=== PATIENT | female | born 1955 | race Caucasian/White ===

== ENCOUNTER 2018-06-09 14:56 | Inpatient (IN) | payer OTHER ==
[2018-06-09 15:55] VITALS: BMI 30.8
[2018-06-09] MEDS ORDERED: ASPIRIN EC 81 MG TAB PO ONE (16:19)
[2018-06-09 16:45] LABS: Protime INR 1.03
[2018-06-09] MEDS: CARVEDILOL 12.5 MG TAB PO SCH (16:59)
[2018-06-09] MEDS ORDERED: PNEUMOCOCCAL VACCINE 0.5 ML IMVAC ONE (17:00)
[2018-06-09] MEDS: ENOXAPARIN 60 MG/0.6 ML SQ SCH ×2 (17:00→21:00)
[2018-06-09 17:11] LABS: ALT/SGPT 31 U/L (12-78); AST/SGOT 20 U/L (15-37); Albumin 3.8 g/dL (3.4-5.0); Alkaline Phosphatase 82 U/L (45-117); BUN Blood Urea Nitrogen 18 mg/dL (7-18); Bicarbonate 31 mmol/L (21-32); Bilirubin Total 0.6 mg/dL (0.2-1.0); CKMB Creatine Kinase MB < 1.0 ng/mL (0.3-3.6); Creatine Phosphokinase 76 U/L (26-192); Glucose Level 88 mg/dL (74-106); Magnesium 2.5 mg/dL (1.8-2.4); Potassium 3.6 mmol/L (3.5-5.1); Protein, Total 8.4 g/dL (6.4-8.2); Sodium Level 140 mmol/L (136-145); Thyroid Stimulating Hormone 0.812 uIU/mL (0.360-3.740); Troponin I < 0.02 ng/mL (0.0-0.045)
--- NOTE | 2018-06-09 18:21 | RAD REPORT ---
EXAM DESCRIPTION: Devin Singletary (2 Views)06/09/2018 5:56 pm CLINICAL HISTORY: Cough COMPARISON: 2012 FINDINGS: The lungs appear clear of acute infiltrate. The heart is normal size IMPRESSION: No acute abnormalities displayed
[2018-06-09] MEDS ORDERED: POTASSIUM CL SA 10 MEQ TAB PO ONE (21:00)
--- NOTE | 2018-06-10 02:50 | HP ---
Date of Admission: 06/09/2018 Chief Complaint: High blood pressure, chest pain, shortness of breath. 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 The patient santos s a history of hypertension, takes her medications regularly, but today while she was at school, sitt ing down eating lunch with other teachers, all of a sudden she started to have chest tightness associ ated with shortness of breath and she was sweating profusely. Blood pressure checked at school was 1 42/111 and this was around 12:15 p.m. The patient was brought into office and when I evaluated her b lood pressure, it was normal. She was asymptomatic, but she describes feeling funny in her chest. U jim further questioning, the patient reports having this similar complaints of having chest tightness associated with shortness of breath and sweating with normal day-to-day activity and this is going o n in last 2-3 weeks. She denies any fever, chills, cough, expectoration. No fall. No injury. Afte r I have evaluated her, decision was made to admit her to hospital as I am concerned about possibilit y of unstable angina. Review of Systems: Cardiovascular: As mentioned above. All other systems reviewed and negative. Past Medical History: Mild intermittent asthma, depression, hypertension, hyperlipidemia, fibromyalg ia, gastroesophageal reflux disease, osteoporosis, impaired fasting glucose, breast cancer, vitamin D deficiency. Past Surgical History: Partial left mastectomy in 2009 due to breast cancer and then in 2010, she santos d bilateral mastectomy due to left breast cancer. She had cholecystectomy in 2009. Allergies: TO PENICILLIN AND CODEINE. Family History: Significant for hypertension, diabetes, hyperlipidemia, stroke, heart disease, lung cancer. Social History: Negative for smoking or alcohol use. Medications: Advair 250/50 one puff 2 times a day, alprazolam 0.25 mg p.o. b.i.d. p.r.n. anxiety, Am devon 10 mg p.o. at bedtime for sleep, amlodipine 5 mg p.o. daily, Boniva 150 mg p.o. once a month, Ca ltrate plus D 1 tablet 2 times a day, carvedilol 12.5 mg 2 times a day, duloxetine 60 mg p.o. daily, famotidine 40 mg p.o. at bedtime, folic acid 1 mg p.o. daily, tramadol 50 mg 4 times a day as needed. Physical Examination: Vital Signs: When she came into office today, height 5 feet 1 inch, weight 163 pounds, blood pressur e 122/82, respiratory rate 15, temperature 98.3, pulse 106, regular. General: Awake, alert, oriented, not in distress. HEENT: Head atraumatic, normocephalic. Conjunctivae nonerythematous. Sclerae white. Mouth, no thr ush or edema noted. Ears/Nose, no mass, lesion, discharge noted. Neck: Supple. No JVD, lymph nodes, bruit, thyromegaly noted. Lungs: Bilateral good equal air entry. Clear to auscultation. No rhonchi. No rales. Heart: Normal heart sounds, no murmur or gallop. Abdomen: Soft, bowel sounds normal. No guarding, rigidity, tenderness, mass, hepatosplenomegaly, dis tention, or bruit noted. Extremities: No leg edema. No calf tenderness. Skin: No rash, ulcer, cellulitis. Lymphatics: No lymph node enlargement in neck, supraclavicular, infraclavicular region. Neuro: No focal neurological deficit. Chest: Unremarkable. External Genitalia: Deferred. Rectal: Deferred. Laboratory Data: Chest x-ray, no acute cardiopulmonary changes. Sodium 140, potassium 3.6, chloride 105, bicarb 31, BUN 18, creatinine 0.98, glucose 88. Liver function tests unremarkable. Troponin l ess than 0.02. TSH 0.812. CBC pending. PT/PTT normal. Impression: 1.Unstable angina. 2.Hypertension. 3.Hyperlipidemia. 4.Breast cancer. 5.Gastroesophageal reflux disease. 6.Osteoporosis. 7.Anxiety. 8.Depression. Plan: Admit the patient to hospital for further evaluation and management of this problem. The sahara ent is appropriate for inpatient and is expected to spend 2 midnights in hospital. Another EKG was o rdered. We will follow up on that along with CBC result, which is pending. We will get another set of cardiac enzymes tonight. Echocardiogram was ordered and we will get a stress test done tomorrow. Cardiology consultation was requested. The patient was started on aspirin and Lovenox per order. H ome medications will be continued per order. I will see her tomorrow morning for followup. Details and plan of treatment discussed with the patient. JESSEE/TOBIAS Voice ID: [id number]
[2018-06-10] MEDS: CARVEDILOL 12.5 MG TAB PO SCH (05:11)
[2018-06-10] MEDS ORDERED: REGADENOSON 0.4 MG/5 ML SYR IV ONE (07:56)
[2018-06-10] MEDS ORDERED: AMLODIPINE 5 MG TAB PO SCH (09:00)
[2018-06-10] MEDS ORDERED: ASPIRIN EC 81 MG TAB PO SCH (09:00)
[2018-06-10 09:19] VITALS: TEMP 97.2
--- NOTE | 2018-06-10 09:58 | RAD REPORT ---
EXAM DESCRIPTION: NM - Rest Stress Cardiac Imaging - 06/10/2018 9:52 am CLINICAL HISTORY: CP Chest pain. COMPARISON: No comparisons TECHNIQUE: The patient was administered approximately 10mCi of Tc 99m Sestamibi prior to resting SPE CT imaging of the heart. The patient was then administered approximately 30 mCi of Tc 99m Sestamibi f ollowing exercise or pharmacologic stress. Multiplanar SPECT images were reviewed. FINDINGS: No stress induced ischemic defect is seen to suggest stress induced ischemia. No fixed def ect is seen to suggest hibernating myocardium or scarred myocardium. The end diastolic volume is 85 ml, the end systolic volume is 38 ml, and the ejection fraction is 55 %. IMPRESSION: No stress induced ischemia.
[2018-06-10] MEDS: ENOXAPARIN 60 MG/0.6 ML SQ SCH (10:12)
--- NOTE | 2018-06-10 12:35 | RAD REPORT ---
EXAM DESCRIPTION: CT - Chest For Pe Angio - 06/10/2018 12:26 pm CLINICAL HISTORY: Chest pain, shortness of breath COMPARISON: Chest films same date, CT chest 2011 TECHNIQUE: Dynamically enhanced 3 mm thick images of the chest were obtained during administration o f approximately 150mL Isovue 370 IV contrast. Coronal and oblique MIP reconstruction images were gene rated and reviewed. Exam utilizes a protocol to evaluate the pulmonary arterial tree. All CT scans are performed using dose optimization technique as appropriate and may include automated exposure control or mA/KV adjustment according to patient size. FINDINGS: No pulmonary emboli are identified. The aorta as imaged shows no acute or suspicious finding. No pericardial thickening or effusion. No infiltrate or mass in the lung parenchyma. No pleural effusion or pleural thickening. Interstitial markings are prominent and probably are baseline for the patient. A minimal component of interstitia l edema or infiltrate would still be possible. No mediastinal or hilar suspicious masses. No chest wall masses or abnormal axillary lymphadenopathy. Left mastectomy surgical changes noted. IMPRESSION: No pulmonary emboli identified. No focal infiltrate or mass. Mild prominence of the interstitium is probably baseline mild fibrosis. A minimal component of interstitial edema or infiltrate would be possible.
--- NOTE | 2018-06-10 14:03 | EKG ---
Test Date: 2018-06-09 Test Time: 16:24:34 Nuclear Reactor Engineer: CASANDRA MEASUREMENT RESULTS: Intervals: Rate: 74 MA: 146 QRSD: 90 QT: 420 QTc: 466 [place]: P: 45 MA: 146 QRS: -13 T: 31 INTERPRETIVE STATEMENTS: Normal sinus rhythm Minimal voltage criteria for LVH, may be normal variant Borderline ECG Compared to ECG 11/22/2013 10:47:56 Left ventricular hypertrophy now present Sinus bradycardia no longer present T-wave abnormality no longer present Possible ischemia no longer present Prolonged QT interval no longer present Electronically Signed On 06-10-18 13:59:03 YARDER OPERATOR by Junior Gibbons
[2018-06-10] MEDS ORDERED: TRAMADOL HCL 50 MG TAB PO ONE (15:04)
[2018-06-10] MEDS ORDERED: ACETAMINOPHEN 500 MG TAB PO ONE (15:04)
--- NOTE | 2018-06-10 16:08 | TREADPHA ---
DX: CHEST PAIN Date of Study: 06/10/18 Ht: 5 1 Wt: 163 lb 0 oz Consulting Physician: JOANNE MEDICATIONS: NORVASC, ASPIRIN, COREG, LOVENOX. HISTORY: 63 YEAR FEMALE, COMPLAINTS OF CHEST PAIN, HISTORY: HYPERTENSION, FIBROMYALGIA, NEUROPATHY, DOUBLE MASTECTOMY. PHYSICIAL EXAMINATION: RESTING B.P.: 142/69 RESTING H.R.: 67 RESTING EKG: NORMAL PROTOCOL: LEXISCAN EXERCISE TIME: 3:30 B.P. AT PEAK STRESS: 114/63 IMPRESSION: LEXISCAN INJECTED, FOLLOWED BY CARDIOLITE PER PROTOCOL, SEE NUCLEAR MEDICINE REPORT. NO SUPRAVENTRICULAR TACHYCARDIA. NO VENTRICULAR TACHYCARDIA. NO PREMATURE ATRIAL COMPLEXS. NO PREMATURE VENTRICULAR COMPLEXS. PATIENT REPORTED 8/10 CHEST TIGHTNESS PRIOR TO STRESS TEST. PATIENT REPORTED DECREASE IN CHEST TIGHTNESS THROUGHOUT AND IN RECOVERY. PATIENT REPORTED NO CHEST PAIN.
[2018-06-10 17:07] VITALS: BP 143/88
--- NOTE | 2018-06-11 00:02 | CON ---
Date of Consultation: 06/10/2018 Reason For Consultation: Chest pain. History Of Present Illness: Ms. iKm is a 63-year-old white woman, has a history of hypertension, fibromyalgia, dyslipidemia, gastroesophageal reflux disease, depression, and history of breast cance r in the past. She came in with sharp stabbing chest pain over the left chest that is persistent for hours without any nausea, vomiting, diaphoresis, PND, orthopnea, pedal edema, palpitations, or synco pe. Ms. Kim had a normal heart catheterization in 2011. Past Medical History: As stated above. Allergies: INCLUDE PENICILLIN AND CODEINE. Review of Systems: Negative. Social History: Negative. Family History: Negative. Medications: At home include carvedilol and Norvasc. Physical Examination: GENERAL: She appeared to be a little bit anxious, but otherwise in no acute distress. VITAL SIGNS: Stable. She was afebrile. She was in a sinus rhythm. HEENT: Negative. NECK: Supple without any bruit, lymphadenopathy, JVD, or thyromegaly. CHEST: Clear to auscultation and percussion. CARDIAC: Revealed a regular rhythm and rate without any murmurs, gallops, or rubs. ABDOMEN: Benign. EXTREMITIES: Revealed no clubbing, cyanosis, or edema. Diagnostic Data: Within normal limits. Impression And Plan: Atypical chest pain in a patient with hypertension and dyslipidemia. She had a negative heart catheterization in 2011. There is an echocardiogram and a Lexiscan that are pending and we will see what those show prior to making any final decisions. Her other issues include hypert ension and dyslipidemia that are stable. She has fibromyalgia. Her symptoms are different with her fibromyalgia. She would usually describe a muscle pulling kind of sensation. She has a history of d epression and has a history of breast cancer that is cured as far as we know. VERONICA/TOBIAS Voice ID: [id number] Report ID: [id number]
--- NOTE | 2018-06-12 06:22 | DS ---
Date of Discharge: 06/10/2018 Disposition: Discharged to go home. Physical Examination: HEENT: Unremarkable. LUNGS: Clear to auscultation. HEART: Sounds normal. ABDOMEN: Soft. Bowel sounds normal. No guarding, rigidity, tenderness, or distention. EXTREMITIES: No leg edema. Discharge Medications And Instructions: Continue prior home medication except change amlodipine 5 mg. The patient to take 1 tablet by mouth 2 times a day, take antibiotic cephalexin 500 mg 1 capsule by mouth 3 times a day with food for 1 week. Follow up at my office in 1 week. Hospital Course: A 63-year-old female patient admitted to hospital with chest pain complaint. Please see dictated H and P for more information. The patient' s blood pressure was high while she was at school and had chest pain describing as tightness, some shortness of breath and sweating associated with that. She came into office after she was evaluated. She was admitted to hospital. See dictated H and P for more details. I was concerned about possibility of unstable angina when I first saw her and admitted her to hospital. Initial workup included routine EKG, chest x-ray, and blood work including troponin, which came back unremarkable and Lexiscan was done which was negative for stress -induced ischemia. After stress test came back negative, we ordered CT scan of the chest per PE protocol which was negative for pulmonary embolism or any other acute findings. Cardiology consultation was requested. The patient was asymptomatic and was discharged to go home and was advised to increase the dose of her amlodipine from 5 mg once a day to 2 times a day, and I will see her at office in 1 week. She was given pneumonia vaccine during this hospital stay and this morning when I saw her, she was having some pain in and around injection site in right arm and there was no sign of any redness or swelling when I saw her. Later on, nurse contacted and informed me that her arm is red and warm to touch and tender around injection site and thus, will start her on antibiotic for one week for cellulitis of right arm. Final Diagnoses: 1. Chest pain. 2. Hypertension. 3. Breast cancer, left. 4. Hyperlipidemia. 5. Mild intermittent asthma. 6. Cellulitis, right arm. 7. Gastroesophageal reflux disease. 8. Anxiety. 9. Depresssion. JESSEE/MODL Voice ID: [id number] Report ID: [id number] MTDD
--- NOTE | 2018-06-13 07:53 | ECHO ---
HEIGHT: 5 ft 1 in WEIGHT: 163 lb 0 oz DATE OF STUDY: 06/10/[address]: Kody Rock MD 2-DIMENSIONAL: YES M.MODE: YES DOPPLER: YES COLOR FLOW: YES TDS: NO PORTABLE: NO DEFINITY: NO BUBBLE STUDY: NO DIAGNOSIS: CONGESTIVE HEART FAILURE CARDIAC HISTORY: CATHERIZATION: NO SURGERY: NO PROSTHETIC VALVE: NO PACEMAKER: NO MEASUREMENTS (cm) DIASTOLIC (NORMALS) SYSTOLIC (NORMALS) IVSd 0.9 (0.6-1.2) LA Diam 2.5 (1.9-4.0) LVEF 59% LVIDd 3.8 (3.5-5.7) LVIDs 2.6 (2.0-3.5) %FS 30% LVPWd 1.0 (0.6-1.2) Ao Diam 2.9 (2.0-3.7) 2 DIMENSIONAL ASSESSMENT: RIGHT ATRIUM: NORMAL LEFT ATRIUM: NORMAL RIGHT VENTRICLE: NORMAL LEFT VENTRICLE: NORMAL TRICUSPID VALVE: NORMAL MITRAL VALVE: NORMAL PULMONIC VALVE: NORMAL AORTIC VALVE: NORMAL PERICARDIAL EFFUSION: NONE AORTIC ROOT: NORMAL LEFT VENTRICULAR WALL MOTION: NORMAL DOPPLER/COLOR FLOW: NORMAL COMMENTS: NORMAL 2D ECHOCARDIOGRAM WITH DOPPLER. NO WALL MOTION ABNORMALITY. NO EFFUSION. TECHNOLOGIST: Luis JOHNS
== END 2018-06-10 17:44 | disposition home or self-care (01) | DRG 313 ==
LOC: 4TH 14:59
PROVIDERS: ADMIT Internal Medicine; ATTEND Internal Medicine
DX: R07.9 Chest pain, unspecified (principal); L03.113 Cellulitis of right upper limb; I10 Essential (primary) hypertension; E78.5 Hyperlipidemia, unspecified; K21.9 Gastro-esophageal reflux disease without esophagitis; M81.0 Age-related osteoporosis without current pathological fracture; F41.9 Anxiety disorder, unspecified; F32.9 Major depressive disorder, single episode, unspecified; C50.919 Malignant neoplasm of unspecified site of unspecified female breast; M79.7 Fibromyalgia; Z85.3 Personal history of malignant neoplasm of breast; Z88.5 Allergy status to narcotic agent; Z88.0 Allergy status to penicillin; Z23 Encounter for immunization; J45.20 Mild intermittent asthma, uncomplicated
CPT/HCPCS: 36415; 71046; 71275; 78452; 80053; 80061; 82550; 82553; 83735; 84443; 84484; 85025; 85610; 85730; 90670; 93005; 93017; 93306; A9500; G0009; G0378; J1650; J2785; Q9967

== ENCOUNTER 2022-10-18 19:26 | Emergency (ER) | payer OTHER ==
--- OUTSIDE RECORDS SUMMARY | 2022-10-18 19:30 | XMS REPORT | Continuity of Care Document ---
:1955 Author Organization [facility] t Address [address] [facility] [address] [place] [id number] Care Team Providers Name Role Phone Kirill Rock Primary Care Physician GC_SWHAWPRJeanine_Rambo_H Attending Clinician Unavailable ANGEL HADDAD Attending Clinician Unavailable ANGEL LUIS BRIONES Attending Clinician Unavailable [email or web address]_Rambo_Sharmin Admitting Clinician Unavailable Payers Payer Name Policy Type Policy Number Effective Date Expiration Date S [facility] [id number] (MEDICARE REPLACEMENT/ADVANTAGE - PPO) Problems This patient has no known problems. Allergies, Adverse Reactions, Alerts Allergy Allergy Status Severity Reaction(s) Onset Inactive Treating Comm ents Source Name Type Date Date Clinician Penicill Propensi Active [facility] ins ty to 01-17 st adverse 00:00: Hospita reaction 00 l s to drug PENICILL Allergy Active [facility] INS to Medical substanc e Family History Family Member Diagnosis Comments Start Date Stop Date Source Natural brother Colon polyps [facility] Natural sister Colon [facility]ps [facility] Social History Social Habit Start Date Stop Date Quantity Comments Source Gender identity [facility] Alcohol intake 2020-02-22 2020-02-22 Lifetime [facility] 00:00:00 00:00:00 non-drinker Hospital (finding) History of Social 2020-02-22 2020-02-[address] function 00:00:00 00:00:00 Hospital Tobacco use and 2019-01-17 2019-01-17 Smokeless [facility] exposure 00:00:00 00:00:00 tobacco non-user Hospital Sex Assigned At [birth year] [facility] Smoking Status Start Date Stop Date Source Never smoked tobacco [facility] Medications Ordered Filled Start Stop Current Ordering Indication Dosage Frequency Signature Comments Components Source Medication Medication Date Date Medication? Clinician (SIG) Name Name pantoprazol 2019-05 Yes 40mg QD Take 40 mg [facility] 0-[address] (PROTONIX) 09:59: daily. Hospi ta 40 MG EC 17 l tablet tofacitinib 2019-05 Yes 5mg Q.5D Take 5 mg M [facility] (Xeljanz) 5 0-[address] mg tablet 09:57: (two) Hospita 35 times a l day. zolpidem Yes TK 1 T PO Meth abrahan (AMBIEN) 10 8-[address] mg tablet 00:00: Hospita 00 l traMADol 2018-0 Yes TK 1 T PO Meth abrahan (ULTRAM) 50 8-[address] mg tablet 00:00: Hospita 00 l DULoxetine Yes TK 1 C PO [facility] (CYMBALTA) 7-[address] 60 MG 00:00: Hospita capsule 00 l amLODIPine Yes TK 1 T PO [facility] (NORVASC) 5 7-[address] mg tablet 00:00: Hospita 00 l celecoxib Yes TK 1 C PO Met hodi (CeleBREX) 7-[address] 200 MG 00:00: Hospita capsule 00 l folic acid 2018- Yes TK 1 T PO [facility] (FOLVITE) 1 7-[address] MG tablet 00:00: Hospita 00 l methotrexat Yes INJECT 1 [facility] e PF 25 6-[address] mg/mL chemo 00:00: WEEKLY. Hos linda syringe 00 l albuterol albuterol No albuterol [facility] sulfate HFA sulfate HFA sulfate Medical 90 90 HFA 90 mcg/actuati mcg/actuati mcg/actuat on aerosol on aerosol ion inhaler inhaler aerosol INHALE 2 INHALE 2 inhaler PUFFS BY PUFFS BY INHALE 2 MOUTH EVERY MOUTH EVERY PUFFS BY 6 HOURS 6 HOURS MOUTH NEEDED FOR NEEDED FOR EVERY 6 SHORTNESS SHORTNESS HOURS OF BREATH OF BREATH NEEDED FOR SHORTNESS OF BREATH amlodipine amlodipine No amlodipine [facility] 5 mg tablet 5 mg tablet 5 mg M edical TAKE 1 TAKE 1 tablet TABLET BY TABLET BY TAKE 1 MOUTH TWICE MOUTH TWICE TABLET BY DAILY DAILY MOUTH TWICE DAILY atorvastati atorvastati No atorvastat [facility] n 20 mg n 20 mg in 20 mg Medic al tablet TAKE tablet TAKE tablet 1 TABLET BY 1 TABLET BY TAKE 1 MOUTH DAILY MOUTH DAILY TABLET BY AT BEDTIME AT BEDTIME MOUTH DAILY AT BEDTIME azithromyci azithromyci No azithromyc [facility] n 250 mg n 250 mg in 250 mg Me dical tablet tablet tablet cefuroxime cefuroxime No cefuroxime [facility] axetil 250 axetil 250 axetil 250 Medical mg tablet mg tablet mg tablet TAKE 1 TAKE 1 TAKE 1 TABLET BY TABLET BY TABLET BY MOUTH TWICE MOUTH TWICE MOUTH DAILY DAILY TWICE DAILY celecoxib celecoxib No celecoxib [facility] 200 mg 200 mg 200 mg Medical capsule capsule capsule TAKE 1 TAKE 1 TAKE 1 CAPSULE BY CAPSULE BY CAPSULE BY MOUTH TWICE MOUTH TWICE MOUTH DAILY WITH DAILY WITH TWICE FOOD FOOD DAILY WITH FOOD duloxetine duloxetine No duloxetine [facility] 60 mg 60 mg 60 mg Medical capsule,del capsule,del capsule,de ayed ayed layed release release release TAKE 1 TAKE 1 TAKE 1 CAPSULE BY CAPSULE BY CAPSULE BY MOUTH DAILY MOUTH DAILY MOUTH DAILY estradiol estradiol No estradiol [facility] 0.01% (0.1 0.01% (0.1 0.01% (0.1 Medical mg/gram) mg/gram) mg/gram) vaginal vaginal vaginal cream cream cream INSERT 0.5 INSERT 0.5 INSERT 0.5 GRAM GRAM GRAM VAGINALLY VAGINALLY VAGINALLY EVERY 72 EVERY 72 EVERY 72 HOURS AT HOURS AT HOURS AT DINNER DINNER DINNER gabapentin gabapentin No gabapentin [facility] 100 mg 100 mg 100 mg Medical capsule capsule capsule TAKE 1 TAKE 1 TAKE 1 CAPSULE BY CAPSULE BY CAPSULE BY MOUTH TWICE MOUTH TWICE MOUTH DAILY DAILY TWICE DAILY Gemtesa 75 Gemtesa 75 No Gemtesa 75 [facility] mg tablet mg tablet mg tablet Medical TAKE 1 TAKE 1 TAKE 1 TABLET BY TABLET BY TABLET BY MOUTH EVERY MOUTH EVERY MOUTH DAY DAY EVERY DAY Kevzara 200 Kevzara 200 No Kevzara [facility] mg/1.14 mL mg/1.14 mL 200 Med ical subcutaneou subcutaneou mg/1.14 mL s pen s pen subcutaneo injector injector us pen injector methylpredn methylpredn No methylpred [facility] isolone 4 isolone 4 nisolone 4 Medical mg tablets mg tablets mg tablets in a dose in a dose in a dose pack TAKE pack TAKE pack TAKE BY MOUTH BY MOUTH BY MOUTH DIRECTED DIRECTED DIRECTED nitrofurant nitrofurant No nitrofuran [facility] oin oin toin Medical monohydrate monohydrate monohydrat /macrocryst /macrocryst e/macrocry als 100 mg als 100 mg stals 100 capsule capsule mg capsule TAKE 1 TAKE 1 TAKE 1 CAPSULE BY CAPSULE BY CAPSULE BY MOUTH EVERY MOUTH EVERY MOUTH 12 HOURS 12 HOURS EVERY 12 FOR 7 DAYS FOR 7 DAYS HOURS FOR 7 DAYS Orencia Orencia No Orencia [facility] ClickJect ClickJect ClickJect Medical 125 mg/mL 125 mg/mL 125 mg/mL subcutaneou subcutaneou subcutaneo s s auto-inject auto-inject auto-injec or or tor pantoprazol pantoprazol No pantoprazo [facility] e 40 mg e 40 mg le 40 mg Medic al tablet,garfield tablet,garfield tablet,del yed release yed release ayed TAKE 1 TAKE 1 release TABLET BY TABLET BY TAKE 1 MOUTH DAILY MOUTH DAILY TABLET BY MOUTH DAILY prednisone prednisone No prednisone [facility] 10 mg 10 mg 10 mg Medical tablet TAKE tablet TAKE tablet 1 TABLET BY 1 TABLET BY TAKE 1 MOUTH TWICE MOUTH TWICE TABLET BY DAILY UNTIL DAILY UNTIL MOUTH ALL TAKEN ALL TAKEN TWICE DAILY UNTIL ALL TAKEN tramadol 50 tramadol 50 No tramadol [facility] mg tablet mg tablet 50 mg Medi colleen TAKE 1 TAKE 1 tablet TABLET BY TABLET BY TAKE 1 MOUTH TWICE MOUTH TWICE TABLET BY DAILY DAILY MOUTH NEEDED NEEDED TWICE DAILY NEEDED Trelegy Trelegy No Trelegy [facility] Ellipta 200 Ellipta 200 Ellipta [facility] mcg-62.5 mcg-62.5 200 mcg-25 mcg mcg-25 mcg mcg-62.5 powder for powder for mcg-25 mcg inhalation inhalation powder for INHALE 1 INHALE 1 inhalation PUFF BY PUFF BY INHALE 1 MOUTH EVERY MOUTH EVERY PUFF BY DAY DAY MOUTH EVERY DAY Xeljanz 5 Xeljanz 5 No Xeljanz 5 [facility] mg tablet mg tablet mg tablet Medical Immunizations Ordered Immunization Filled Immunization Date Status Commen ts Source Name Name [employer] NortheastID-19 MRNA 2021-04-04 Completed Meth odist VACCINATION 00:00:00 [facility] PFIZER COVID-19 MRNA 2020-08-13 Completed Meth odist VACCINATION 00:00:00 Hospital PFIZER COVID-19 MRNA 2020-07-23 Completed Meth odist VACCINATION 00:00:00 Hospital Vital Signs Vital Name Observation Time Observation Value Comments Source BP Diastolic 2022-05-29 00:00:00 94 mm[Hg] [facility] Height 2022-05-29 00:00:00 61 [in_i] [facility] BMI (Body Mass Index) 2022-05-29 00:00:00 24.6 kg/m2 [facility] BP Systolic 2022-05-29 00:00:00 129 mm[Hg] [facility] Body Weight 2022-05-29 00:00:00 130 [lb_av] [facility] Procedures This patient has no known procedures. Plan of Care Planned Activity Planned Date Details Comments Source Future Scheduled 2022-08-26 COLONOSCOPY SCREENING [facility] Test 19:33:14 [code = COLONOSCOPY SCREENING] Future Scheduled 2022-08-26 SHINGLES VACCINES (1 Met [facility] Test 19:33:14 of 2) [code = SHINGLES VACCINES (1 of 2)] Future Scheduled 2022-08-26 BREAST CANCER [facility] Test 19:33:14 SCREENING [code = BREAST CANCER SCREENING] Future Scheduled 2022-08-26 65+ [facility]OCOCCAL [facility] Test 19:33:14 VACCINE (1 - PCV) [code = 65+ PNEUMOCOCCAL VACCINE (1 - PCV)] Future Scheduled 2022-08-26 COVID-19 VACCINE (4 - [facility] Test 19:33:14 Booster for Pfizer series) [code = COVID-19 VACCINE (4 - Booster for Pfizer series)] Future Scheduled 2022-08-26 INFLUENZA VACCINE [facility] Test 19:33:14 [code = INFLUENZA VACCINE] Diagnostic Test 2022-05-29 culture, urine [code [facility] Pending 00:00:00 = culture, urine] Encounters Start End Encounter Admission Attending Care Care Encounter Source Date/Time Date/Time Type Type Clinicians Facility Department ID 2022-06-26 2022-06-26 Outpatient GC_SWHAWPRC PRIV PRIV [id number] [facility] 00:00:00 00:00:00 _Fisher_H [id number] Medi colleen 2022-05-29 2022-05-29 Outpatient [facility]WHAWPRC PRIV PRIV [id number] [facility] 00:00:00 00:00:00 _Fisher_H [id number] [facility] 2022-05-29 2022-05-29 Debbie [facility] 00:00:00 00:00:00 Bereket [facility] félixal PA: [id number] GC_SWHAWPRC Pam, _Pam [address], [place] [address] , Ph. [phone] 2022-05-27 2022-05-27 Outpatient GC_[facility]AWPRC PRIV PRIV [id number] [facility] 00:00:00 00:00:00 _Fisher_H [id number] [facility] 2021-04-04 2021-04-04 Outpatient [facility] [id number] [place] 00:00:00 00:00:[address] 2020-08-13 2020-08-13 Outpatient BOO [facility] [id number] [place] 00:00:00 00:00:00 ANGEL [address] 2020-07-23 2020-07-23 Outpatient [facility] [id number] [place] 00:00:00 00:00:[address] 2020-02-22 2020-02-22 Outpatient [facility] [id number] [place] 00:00:00 00:00:00 ANGEL LUIS [address] Results Test Description Test Time Test Comments Results Result Comments Source Bacteria identified in Urine by Culture 2022-05-15 00:00:00 Test Item Value Reference Range Interpretation Comme nts Bacteria identified in Urine by Culture (test code = 630-4) see not e [facility]
[2022-10-18 19:56] LABS: Absolute Lymphocytes (CBC) 2.9 K/uL (0.7-4.9); Lymphocytes % 37.1 % (15.3-44.8); MCV 86.9 fL (80-100); MPV 8.5 fL (7.6-11.3); RBC Red Blood Cell Count 4.83 M/uL (3.86-4.86)
[2022-10-18] MEDS ORDERED: NA CHLORIDE 0.9% 1,000 ML ONE (19:59)
[2022-10-18 20:05] LABS: Protime INR 0.98
[2022-10-18 20:38] LABS: Albumin 3.8 g/dL (3.4-5.0); Bilirubin Direct 0.3 mg/dL (0-0.2); Bilirubin Indirect, Calculated 1.2 mg/dL (0.2-0.8); Bilirubin Total 1.5 mg/dL (0.2-1.0); Magnesium 1.9 mg/dL (1.6-2.4); Protein, Total 7.3 g/dL (6.4-8.2); Troponin High Sensitivity 7.2 pg/mL (<58.9)
[2022-10-18 20:41] LABS: Potassium 2.6 mEq/L (3.5-5.1)
--- NOTE | 2022-10-18 21:16 | RAD REPORT ---
EXAM DESCRIPTION: RAD - Chest Single View - 10/18/2022 8:41 pm CLINICAL HISTORY: syncope COMPARISON: Chest Pa And Lat (2 Views) dated 10/07/2020; Chest Pa And Lat (2 Views) dated 05/08/2020; Chest Pa And Lat (2 Views) dated 06/09/2018; CHEST PA AND LAT 2 VIEW dated 10/06/2011; Chest For Pe An alla dated 06/10/2018 FINDINGS: Lines: None. Lungs: No evidence of edema or pneumonia. Pleural: No significant pleural effusions or pneumothorax. Cardiac: Similar size and configuration. Mediastinum: Within normal limits. Bones: No acute fractures. Other: Surgical changes in the left upper chest wall. IMPRESSION: No acute cardiopulmonary disease.
[2022-10-18] MEDS ORDERED: Magnesium Sulfate 2gm IVPB 2 G/50 ML BAG IV ONE (21:28)
[2022-10-18] MEDS ORDERED: POTASSIUM CL SA 10 MEQ TAB PO ONE (21:28)
--- NOTE | 2022-10-18 21:29 | RAD REPORT ---
EXAM DESCRIPTION: CTAbdomen Pelvis W Contrast - 10/18/2022 9:21 pm CLINICAL HISTORY: ABD PAIN COMPARISON: No comparisons TECHNIQUE: CT of the abdomen and pelvis was performed with IV contrast. All CT scans are performed using dose optimization technique as appropriate and may include automated exposure control or mA/KV adjustment according to patient size. FINDINGS: Lower chest: No acute abnormality. Liver: No acute abnormality or suspicious lesions. Biliary: Cholecystectomy. Extrahepatic biliary duct dilatation is likely related to the postcholecyst ectomy state. Common bile duct measures 9 millimeters. Stomach: No significant focal abnormality. Duodenum: No significant focal abnormality. Pancreas: No significant abnormality. Spleen: No significant abnormality. Adrenal: No suspicious lesions. Kidney/ureter: No hydronephrosis. No renal calculi. Too small to characterize and/or benign appearing renal lesions are noted. Retroperitoneum: No retroperitoneal adenopathy. Vascular: No aneurysm. Bowel: Normal appendix. Diverticulosis. No evidence of acute diverticulitis. Peritoneum: No ascites or free air. Bladder: Grossly unremarkable. Reproductive: Tubal ligation clips. Bones: No acute fracture. Moderate disc height loss at L5-S1. Other: n/a IMPRESSION: No acute intra-abdominal or pelvic finding. Normal appendix. Incidental findings as note d above.
--- NOTE | 2022-10-18 21:34 | EDPHYS ---
Physician Documentation [facility] Name: Anny Kim Age: 67 yrs Sex: Female : 1955 Arrival Date: 10/18/2022 Time: 19:26 Bed 4 Private MD: ED Physician Segun López HPI: 10/18 19:51 This 67 yrs old Female presents to ER via EMS with complaints of Syncope, abdominal rt pain. 19:51 Patient presents to the ED with a syncopal event. The patient had an acute onset of rt generalized, severe abdominal pain with associated nausea, vomiting, diarrhea. Patient states that she felt very tingly all over her body at that time. Patient did have a syncopal event, denies any head trauma. States that her abdominal pain is better, no longer nauseated. Denies other acute complaints at this time. Symptoms are moderate severity, no other aggravating alleviating factors.. Historical: - Allergies: 19:36 PENICILLINS; as6 - PMHx: 19:36 breast cancer; Arthritis; as6 - PSHx: 19:36 Cholecystectomy; masectomy; as6 - Immunization history:: Client reports receiving the 2nd dose of the Covid vaccine, [employer]. - Social history:: Smoking status: Patient denies any tobacco usage or history of. - Family history:: not pertinent. ROS: 19:51 Constitutional: Negative for fever, chills, and weight loss, Cardiovascular: Negative rt for chest pain, palpitations, and edema, Respiratory: Negative for shortness of breath, cough, wheezing, and pleuritic chest pain, MS/Extremity: Negative for injury and deformity, Skin: Negative for injury, rash, and discoloration, Psych: Negative for depression, anxiety, suicide ideation, homicidal ideation, and hallucinations. 19:51 Abdomen/GI: Positive for abdominal pain, nausea, vomiting, and diarrhea. 19:51 Neuro: Positive for dizziness, syncope. Exam: 19:51 Constitutional: This is a well developed, well nourished patient who is awake, alert, rt and in no acute distress. Head/Face: Normocephalic, atraumatic. Chest/axilla: Normal chest wall appearance and motion. Nontender with no deformity. No lesions are appreciated. Cardiovascular: Regular rate and rhythm with a normal S1 and S2. No gallops, murmurs, or rubs. Normal PMI, no JVD. No pulse deficits. Respiratory: Lungs have equal breath sounds bilaterally, clear to auscultation and percussion. No rales, rhonchi or wheezes noted. No increased work of breathing, no retractions or nasal flaring. Abdomen/GI: Soft, non-tender, with normal bowel sounds. No distension or tympany. No guarding or rebound. No evidence of tenderness throughout. Skin: Warm, dry with normal turgor. Normal color with no rashes, no lesions, and no evidence of cellulitis. MS/ Extremity: Pulses equal, no cyanosis. Neurovascular intact. Full, normal range of motion. Neuro: Awake and alert, GCS 15, oriented to person, place, time, and situation. Cranial nerves II-XII grossly intact. Motor strength 5/5 in all extremities. Sensory grossly intact. Cerebellar exam normal. Normal gait. Psych: Awake, alert, with orientation to person, place and time. Behavior, mood, and affect are within normal limits. 19:51 ECG was reviewed by the Attending Physician. Vital Signs: 19:36 BP 155 / 91; Pulse 84; Resp 19 S; Temp 98.5(O); Pulse Ox 99% on R/A; Weight 67.59 kg as6 (R); Height 5 ft. 1 in. (R); Pain 4/10; 21:00 BP 150 / 86; Pulse 76; Resp 18 S; Pulse Ox 96% on R/A; as6 22:30 BP 126 / 86; Pulse 74; Resp 19 S; Pulse Ox 94% on R/A; as6 19:36 Body Mass Index 28.15 (67.59 kg, 154.94 cm) as6 19:36 Pain Scale: Adult as6 MDM: 19:36 Patient medically screened. rt 21:36 Differential Diagnosis Syncope, dysrhythmia, electrolyte disturbance, gastroenteritis, rt diverticulitis. Data reviewed: vital signs, nurses notes, lab test result(s), EKG, radiologic studies. Consideration of Admission/Observation Escalation of care including admission/observation considered. Discussed diagnostic findings with patient, states that she feels better, strongly desirous of discharge. We will send patient home with potassium supplementation, strict return precautions and PCP follow-up were discussed with the patient.. I considered the following discharge prescriptions or medication management in the emergency department Medications were administered in the Emergency Department. See MAR. Independent interpretation of the following test(s) in the Emergency Department CT Scan: My interpretation is No obstruction seen on interpretation CT scan images. Counseling: I had a detailed discussion with the patient and/or guardian regarding: the historical points, exam findings, and any diagnostic results supporting the discharge/admit diagnosis, lab results, radiology results, the need for outpatient follow up, to return to the emergency department if symptoms worsen or persist or if there are any questions or concerns that arise at home. Response to treatment: the patient's symptoms have resolved after treatment. 10/18 19:36 Order name: Basic Metabolic Panel; Complete Time: 20:43 rt 10/18 19:36 Order name: CBC with Diff; Complete Time: 20:40 rt 10/18 19:36 Order name: Hepatic Function; Complete Time: 20:43 rt 10/18 19:36 Order name: Magnesium; Complete Time: 20:43 rt 10/18 19:36 Order name: Protime (+inr); Complete Time: 20:40 rt 10/18 19:36 Order name: Ptt, Activated; Complete Time: 20:40 rt 10/18 19:36 Order name: Troponin High Sensitivity; Complete Time: 20:43 rt 10/18 19:36 Order name: Chest Single View XRAY; Complete Time: 21:31 rt 10/18 19:36 Order name: CT Abd/Pelvis - IV Contrast Only; Complete Time: 21:31 rt 10/18 19:36 Order name: EKG; Complete Time: 19:37 rt 10/18 19:36 Order name: Cardiac monitoring; Complete Time: 19:41 rt 10/18 19:36 Order name: EKG - Nurse/Tech; Complete Time: 19:52 rt 10/18 19:36 Order name: IV Saline Lock; Complete Time: 19:41 rt 10/18 19:36 Order name: Labs collected and sent; Complete Time: 19:52 rt 10/18 19:36 Order name: NPO; Complete Time: 19:41 rt 10/18 19:36 Order name: O2 Per Protocol; Complete Time: 19:41 rt 10/18 19:36 Order name: O2 Sat Monitoring; Complete Time: 19:41 rt EC:51 Rate is 80 beats/min. Rhythm is regular, Normal Sinus Rhythm with No ectopy. QRS [place] rt is Normal. [place] interval is normal. QRS interval is normal. QT interval is normal. No Q waves. Clinical impression: NSR w/ Non-specific ST/T Changes. Interpreted by me. Administered Medications: 19:57 Drug: NS 0.9% IV 1000 ml Route: IV; Rate: 1 bolus; Site: right antecubital; aa9 21:39 Follow up: Response: No adverse reaction; IV Status: Completed infusion; IV Intake: aa9 1000ml 21:39 Drug: Potassium Chloride PO Liquid 40 mEq Route: PO; aa9 22:29 Follow up: Response: No adverse reaction as6 21:39 Drug: Magnesium Sulfate IVPB 2 grams Route: IVPB; Infused Over: 2 hrs; Site: right aa9 antecubital; 22:29 Follow up: Response: No adverse reaction; IV Status: Completed infusion; IV Intake: [id number] Disposition Summary: 10/18/22 21:33 Discharge Ordered Location: Home rt Problem: new rt Symptoms: have improved rt Condition: Stable rt Diagnosis - Hypokalemia rt - Syncope rt Followup: rt - With: Private Physician - When: 2 - 3 days - Reason: Discharge Instructions: - Discharge Summary Sheet rt - Syncope rt - Hypokalemia rt Forms: - Medication Reconciliation Form rt - Thank You Letter rt - Antibiotic Education rt - Prescription Opioid Use rt Prescriptions: - potassium chloride 20 mEq Oral Tablet, ER Particles/Crystals - take 1 tablet by ORAL route daily; 5 tablet; Refills: 0, Product Selection rt Permitted Signatures: Dispatcher [employer] Christian Beltrán RN RN as6 Zaira Sandoval RN RN aa9 Segun López MD MD rt
--- NOTE | 2022-10-18 21:34 | ER ---
Nurse's Notes [facility] Name: Anny Kim Age: 67 yrs Sex: Female : 1955 Arrival Date: 10/18/2022 Time: 19:26 Bed 4 Private MD: Diagnosis: Hypokalemia;Syncope Presentation: 10/18 19:36 Chief complaint: EMS states: pt was sitting in her chair at home with family and as6 started to feel her stomach get upset, pt then had a syncopal episode and felt as though her arms and legs went numb. on symptoms have resolved by the time at arrived to ER. Coronavirus screen: At this time, the client does not indicate any symptoms associated with coronavirus-19. Ebola Screen: No symptoms or risks identified at this time. Initial Sepsis Screen: Does the patient meet any 2 criteria? No. Patient's initial sepsis screen is negative. Does the patient have a suspected source of infection? No. Patient's initial sepsis screen is negative. Risk Assessment: Do you want to hurt yourself or someone else? Patient reports no desire to harm self or others. Onset of symptoms was October 18, 2022. 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 - Social history:: Smoking status: Patient denies any tobacco usage or history of. - Family history:: not pertinent. Screenin:40 [facility] ED Fall Risk Assessment (Adult) Score/Fall Risk Level 0 - 2 = Low Risk. Abuse as6 screen: Denies threats or abuse. Denies injuries from another. Nutritional screening: No deficits noted. Tuberculosis screening: No symptoms or risk factors identified. Assessment: 19:40 General: Appears in no apparent distress. Behavior is calm, cooperative. Pain: as6 Complains of pain in generalized Is chronic. Neuro: Level of Consciousness is awake, alert, obeys commands, Oriented to person, place, time, situation. Cardiovascular: Heart tones S1 S2 present Capillary refill < 3 seconds Patient's skin is warm and dry. Respiratory: Respiratory effort is even, unlabored, Respiratory pattern is regular, symmetrical, Breath sounds are clear bilaterally. GI: Reports abdominal discomfort. Derm: Skin is intact, is healthy with good turgor. 21:40 Reassessment: Patient appears in no apparent distress at this time. discharge pending aa9 infusion completion. 21:40 Reassessment: Patient and/or family updated on plan of care and expected duration. Pain aa9 level reassessed. Patient is alert, oriented x 3, equal unlabored respirations, skin warm/dry/pink. Patient denies pain at this time. 21:59 General: discharge pending magnesium completion . as6 Vital Signs: 19:36 BP 155 / 91; Pulse 84; Resp 19 S; Temp 98.5(O); Pulse Ox 99% on R/A; Weight 67.59 kg as6 (R); Height 5 ft. 1 in. (R); Pain 4/10; 21:00 BP 150 / 86; Pulse 76; Resp 18 S; Pulse Ox 96% on R/A; as6 22:30 BP 126 / 86; Pulse 74; Resp 19 S; Pulse Ox 94% on R/A; as6 19:36 Body Mass Index 28.15 (67.59 kg, 154.94 cm) as6 19:36 Pain Scale: Adult as6 ED Course: 19:35 Patient arrived in ED. as6 19:36 Segun López MD is Attending Physician. rt 19:36 Arm band placed on. as6 19:39 Triage completed. as6 19:40 Bed in low position. Call light in reach. Side rails up X2. as6 19:41 Maintain EMS IV. Dressing intact. Good blood return noted. Site clean \T\ dry. Gauge \T\ as 6 site: 20G RAC. 19:52 Zaira Sandoval, RN is Primary Nurse. aa9 19:52 Basic Metabolic Panel Sent. aa9 19:52 CBC with Diff Sent. aa9 19:52 Ptt, Activated Sent. aa9 19:52 Troponin High Sensitivity Sent. aa9 19:52 Magnesium Sent. aa9 19:52 Hepatic Function Sent. aa9 19:52 Protime (+inr) Sent. aa9 20:43 Chest Single View XRAY In Process Unspecified. EDMS 21:23 CT Abd/Pelvis - IV Contrast Only In Process Unspecified. EDMS 22:29 No provider procedures requiring assistance completed. IV discontinued, intact, as6 bleeding controlled, No redness/swelling at site. Pressure dressing applied. Administered Medications: 19:57 Drug: NS 0.9% IV 1000 ml Route: IV; Rate: 1 bolus; Site: right antecubital; aa9 21:39 Follow up: Response: No adverse reaction; IV Status: Completed infusion; IV Intake: aa9 1000ml 21:39 Drug: Potassium Chloride PO Liquid 40 mEq Route: PO; aa9 22:29 Follow up: Response: No adverse reaction as6 21:39 Drug: Magnesium Sulfate IVPB 2 grams Route: IVPB; Infused Over: 2 hrs; Site: right aa9 antecubital; 22:29 Follow up: Response: No adverse reaction; IV Status: Completed infusion; IV Intake: [id number] Medication: 19:40 VIS not applicable for this client. as6 Intake: 21:39 IV: 1000ml; Total: 1000ml. aa9 22:29 IV: 50ml; Total: 1050ml. as6 Outcome: 21:33 Discharge ordered by . rt 22:29 Discharged to home ambulatory, with family. as6 22:29 Condition: stable 22:29 Discharge instructions given to patient, family, Instructed on discharge instructions, follow up and referral plans. medication usage, Demonstrated understanding of instructions, follow-up care, medications, Prescriptions given X 1. 22:30 Patient left the ED. as6 Signatures: Dispatcher [employer] Christain Beltrán RN RN as6 Zaira Sandoval RN RN aa9 Segun López MD MD rt
[2022-10-18 22:57] VITALS: TEMP 98.5
[2022-10-18 23:00] VITALS: BP 126/86; O2SAT 94
--- NOTE | 2022-10-21 07:13 | EKG ---
Test Date: 2022-10-18 Test Time: 19:47:54 [employer] Machine: MARY MEASUREMENT RESULTS: Intervals: Rate: 80 TN: 146 QRSD: 90 QT: 414 QTc: 477 [place]: P: 64 TN: 146 QRS: -3 T: 38 INTERPRETIVE STATEMENTS: Normal sinus rhythm with sinus arrhythmia Minimal voltage criteria for LVH, may be normal variant Nonspecific T wave abnormality Prolonged QT Abnormal ECG Compared to ECG 06/09/2018 16:24:34 T-wave abnormality now present Prolonged QT interval now present Electronically Signed On 10-21-22 07:07:26 CDT by Junior Gibbons
== END 2022-10-18 22:30 | disposition home or self-care (01) ==
LOC: ER 19:26
DX: E87.6 Hypokalemia (principal); Z88.0 Allergy status to penicillin; Z85.3 Personal history of malignant neoplasm of breast
CPT/HCPCS: 96365; 96361; 93005; 85025; 80048; 36415; 83735; 85610; 80076; 85730; 84484; 74177; 71045; 99284; Q9967; J3475; J7030